=== PATIENT | female | born 1980 | race Two or more races ===

== ENCOUNTER 2019-03-31 19:31 | Emergency (ER) | payer MEDICAID ==
[~2019-03-31] VITALS: Ht 165.1 cm; Wt 59.0 kg
[2019-03-31] MEDS ORDERED: IBUPROFEN 600 MG TAB PO ONE (23:30)
[2019-03-31] MEDS ORDERED: cefTRIAXone SOD 1,000 MG VL IM ONE (23:30)
[2019-03-31 23:48] VITALS: BP 104/57
== END 2019-04-01 00:14 | disposition home or self-care (01) ==
LOC: ER 19:31
DX: J02.9 Acute pharyngitis, unspecified (principal); R51 Headache; H92.01 Otalgia, right ear
CPT/HCPCS: 96372; 99283; J0696

== ENCOUNTER 2019-12-23 09:40 | Inpatient (IN) | payer MEDICAID ==
[~2019-12-23] VITALS: Ht 154.9 cm; Wt 64.9 kg
[2019-12-23] MEDS ORDERED: SODIUM CHLORIDE 0.9% 1,000 ML IV ONE ×6 (10:14→12:30)
[2019-12-23] MEDS ORDERED: ACETAMINOPHEN 325 MG TAB PO ONE (10:15)
[2019-12-23] MEDS ORDERED: cefTRIAXone 1GM/50ML D5W 50 ML IV ONE (10:15)
[2019-12-23 11:24] LABS: Basophils # (auto) 0 10 ^3/uL (0-0.2); Basophils % (auto) 0.2 % (0.0-2.0); Eosinophils # (auto) 0 10 ^3/uL (0-0.8); Eosinophils % (auto) 0.2 % (0.0-7.0); Hematocrit 39.2 % (36.0-46.0); Hemoglobin 12.5 g/dL (12.2-16.2); Lymphocytes # (auto) 0.4 10 ^3/uL (0.4-5.4); Lymphocytes % (auto) 5.4 % (10.0-50.0); Mean Corpuscular Hemoglobin 27.5 pg (28.0-32.0); Mean Corpuscular Hgb Conc. 31.8 g/dL (32.0-36.0); Mean Corpuscular Volume 86.5 fL (80.0-100.0); Monocytes # (auto) 0.1 10 ^3/uL (0-1.3); Monocytes % (auto) 1.6 % (0.0-12.0); Neutrophils # (auto) 7.7 10 ^3/uL (1.6-8.6); Neutrophils % (auto) 92.6 % (37.0-80.0); Platelet Count (auto) 321 10^3/uL (140-450); Red Blood Cells 4.54 10^6/uL (4.0-5.20); Red Cell Distribution Width 13.2 % (11.8-14.3); White Blood Cell 8.3 10^3/uL (4.4-10.8)
[2019-12-23 11:37] LABS: INR 1.06 (0.9-1.15); Partial Thromboplastin Time 24.2 sec (23.0-31.2)
[2019-12-23 11:50] LABS: Albumin 3.2 g/dL (3.4-5.0); Anion Gap 9 (5-15); Blood Urea Nitrogen 12 mg/dL (7-18); Calcium 8.5 mg/dL (8.5-10.1); Carbon Dioxide 19 mmol/L (21-32); Chloride 104 mmol/L (98-107); Glucose 112 mg/dL (74-106); Potassium 3.9 mmol/L (3.5-5.1); Sodium 132 mmol/L (136-145)
[2019-12-23 11:51] LABS: Lactic Acid w/Reflex 2.3 mmol/L (0.4-2.0)
[2019-12-23 12:04] LABS: Alanine Aminotransferase 142 U/L (13-56); Alkaline Phosphatase 110 U/L (45-117); Aspartate Aminotransferase 133 U/L (15-37); BUN/Creatinine Ratio 15.6; Bilirubin, Total 0.4 mg/dL (0.2-1.0); GFR African American 106 mL/min; GFR Non-African American 88 mL/min; Lactate Dehydrogenase 357 U/L (84-246); Total Protein 7.4 g/dL (6.4-8.2)
[2019-12-23 12:15] LABS: Urine Bacteria MANY /hpf (None Seen); Urine Blood 2+ /uL (Negative); Urine Hyaline Cast FEW /lpf (0 - 2); Urine Mucus FEW (None Seen); Urine WBC 133 /hpf (0 - 5)
[2019-12-23] MEDS ORDERED: DexAMETHasone SOD PHOS 10MG/1ML VIAL INJ IV ONE (12:30)
[2019-12-23] MEDS ORDERED: IOHEXOL 350 MG/ML 100ML IJ ONE (12:30)
[2019-12-23] MEDS ORDERED: NOREPINEPHRINE 8 MG/250ML KIT 250 ML IV ONE (12:52)
[2019-12-23] MEDS: NOREPINEPHRINE 8 MG/250ML KIT 250 ML IV SCH (13:00)
[2019-12-23] MEDS ORDERED: PROMETHAZINE HCL 25 MG/ML 1ML IV PRN (14:15)
[2019-12-23] MEDS ORDERED: MORPHINE SULF INJ 2 MG/ML SYRINGE 1ML IV PRN ×2 (14:15)
[2019-12-23] MEDS ORDERED: NITROGLYCERIN 0.4 MG SL TAB SL PRN (14:15)
[2019-12-23] MEDS: SODIUM CHLORIDE 0.9% 1,000 ML IV SCH (14:45)
[2019-12-23 15:33] LABS: CRP High Sensitivity 9.72 mg/dL (< 0.3)
[2019-12-23] MEDS ORDERED: diphenhdrAMINE HCL 50 MG/1 ML VL IV ONE (21:15)
[2019-12-23] MEDS: FAMOTIDINE 20 MG TAB PO SCH (21:20)
[2019-12-24] MEDS: SODIUM CHLORIDE 0.9% 1,000 ML IV SCH ×4 (02:20→18:00)
[2019-12-24 07:32] LABS: Basophils # (auto) 0 10 ^3/uL (0-0.2); Basophils % (auto) 0.3 % (0.0-2.0); Eosinophils # (auto) 0 10 ^3/uL (0-0.8); Eosinophils % (auto) 0.2 % (0.0-7.0); Hematocrit 37.3 % (36.0-46.0); Hemoglobin 11.9 g/dL (12.2-16.2); Lymphocytes # (auto) 1.3 10 ^3/uL (0.4-5.4); Lymphocytes % (auto) 12.2 % (10.0-50.0); Mean Corpuscular Volume 87.3 fL (80.0-100.0); Monocytes # (auto) 0.4 10 ^3/uL (0-1.3); Monocytes % (auto) 3.4 % (0.0-12.0); Neutrophils # (auto) 9.2 10 ^3/uL (1.6-8.6); Neutrophils % (auto) 83.9 % (37.0-80.0); Platelet Count (auto) 346 10^3/uL (140-450); Red Blood Cells 4.27 10^6/uL (4.0-5.20); Red Cell Distribution Width 13.6 % (11.8-14.3)
[2019-12-24 07:34] LABS: Calcium 7.8 mg/dL (8.5-10.1); Potassium 3.2 mmol/L (3.5-5.1)
[2019-12-24 07:37] LABS: BUN/Creatinine Ratio 14.9; Bilirubin, Total 0.2 mg/dL (0.2-1.0); Total Protein 6.9 g/dL (6.4-8.2)
[2019-12-24] MEDS: cefTRIAXone 1GM/50ML D5W 50 ML IV SCH (09:02)
[2019-12-24] MEDS: FAMOTIDINE 20 MG TAB PO SCH ×2 (10:07→22:04)
[2019-12-24] MEDS: NOREPINEPHRINE 8 MG/250ML KIT 250 ML IV SCH (13:00)
[2019-12-24 17:00] VITALS: BP 119/65
[2019-12-24] MEDS ORDERED: IBUP600T27 PO (18:28)
[2019-12-24] MEDS ORDERED: HYDR-4833 PO ×2 (18:29→18:32)
[2019-12-24 20:00] VITALS: BP 105/56
[2019-12-24 22:00] VITALS: BP 105/56
[2019-12-25] MEDS: SODIUM CHLORIDE 0.9% 1,000 ML IV SCH ×4 (00:03→18:29)
[2019-12-25] MEDS: traMADol HCL 50 MG TAB PO PRN ×2 (04:23→11:00)
[2019-12-25 05:00] VITALS: BP 99/51
[2019-12-25 05:53] LABS: BUN/Creatinine Ratio 25.7; Calcium 7.5 mg/dL (8.5-10.1); Potassium 3.4 mmol/L (3.5-5.1)
[2019-12-25 08:18] LABS: Basophils # (auto) 0.1 10 ^3/uL (0-0.2); Basophils % (auto) 0.4 % (0.0-2.0); Eosinophils # (auto) 0.1 10 ^3/uL (0-0.8); Eosinophils % (auto) 0.6 % (0.0-7.0); Hematocrit 33.4 % (36.0-46.0); Hemoglobin 10.9 g/dL (12.2-16.2); Lymphocytes # (auto) 3.2 10 ^3/uL (0.4-5.4); Lymphocytes % (auto) 27.2 % (10.0-50.0); Mean Corpuscular Hemoglobin 27.9 pg (28.0-32.0); Mean Corpuscular Hgb Conc. 32.6 g/dL (32.0-36.0); Mean Corpuscular Volume 85.6 fL (80.0-100.0); Monocytes # (auto) 0.5 10 ^3/uL (0-1.3); Monocytes % (auto) 4.7 % (0.0-12.0); Neutrophils # (auto) 7.9 10 ^3/uL (1.6-8.6); Neutrophils % (auto) 67.1 % (37.0-80.0); Platelet Count (auto) 374 10^3/uL (140-450); Red Cell Distribution Width 13.3 % (11.8-14.3); White Blood Cell 11.7 10^3/uL (4.4-10.8)
[2019-12-25 08:30] VITALS: BP 93/55
[2019-12-25] MEDS: FAMOTIDINE 20 MG TAB PO SCH ×2 (09:21→22:00)
[2019-12-25] MEDS: cefTRIAXone 1GM/50ML D5W 50 ML IV SCH (09:21)
[2019-12-25 12:48] VITALS: BP 100/54
[2019-12-25] MEDS ORDERED: POTASSIUM EFFERVESENT TAB 25 MEQ GT ONE (14:45)
[2019-12-25] MEDS ORDERED: POTASSIUM EFFERVESENT TAB 25 MEQ PO ONE (15:00)
[2019-12-25 16:18] VITALS: BP 95/50
[2019-12-25 22:00] VITALS: BP 92/61
[2019-12-26] MEDS: SODIUM CHLORIDE 0.9% 1,000 ML IV SCH ×2 (02:07→08:47)
[2019-12-26 05:00] VITALS: BP 98/57
[2019-12-26 05:05] LABS: Basophils # (auto) 0.1 10 ^3/uL (0-0.2); Basophils % (auto) 0.8 % (0.0-2.0); Eosinophils # (auto) 0.2 10 ^3/uL (0-0.8); Eosinophils % (auto) 3.4 % (0.0-7.0); Hematocrit 32.7 % (36.0-46.0); Hemoglobin 10.8 g/dL (12.2-16.2); Lymphocytes # (auto) 3.2 10 ^3/uL (0.4-5.4); Lymphocytes % (auto) 45.1 % (10.0-50.0); Mean Corpuscular Hemoglobin 28.6 pg (28.0-32.0); Mean Corpuscular Hgb Conc. 33.2 g/dL (32.0-36.0); Mean Corpuscular Volume 86.2 fL (80.0-100.0); Monocytes # (auto) 0.4 10 ^3/uL (0-1.3); Monocytes % (auto) 5.7 % (0.0-12.0); Neutrophils # (auto) 3.2 10 ^3/uL (1.6-8.6); Platelet Count (auto) 381 10^3/uL (140-450); Red Blood Cells 3.79 10^6/uL (4.0-5.20); Red Cell Distribution Width 13.2 % (11.8-14.3)
[2019-12-26 05:26] LABS: Calcium 8.1 mg/dL (8.5-10.1); Potassium 3.6 mmol/L (3.5-5.1)
[2019-12-26 07:57] VITALS: BP 106/58
[2019-12-26] MEDS ORDERED: CEPH-37 PO (09:56)
[2019-12-26] MEDS: FAMOTIDINE 20 MG TAB PO SCH (10:03)
[2019-12-26] MEDS: cefTRIAXone 1GM/50ML D5W 50 ML IV SCH (10:03)
== END 2019-12-26 12:49 | disposition home or self-care (01) | DRG 720 ==
LOC: ER 09:40 → TELE 09:41 → TELE-WESTW 12-24 16:48
PROVIDERS: ADMIT Internal Medicine; ATTEND Internal Medicine Pulmonary Disease
DX: A41.51 Sepsis due to Escherichia coli [E. coli] (principal); E87.1 Hypo-osmolality and hyponatremia; K72.00 Acute and subacute hepatic failure without coma; E86.0 Dehydration; N39.0 Urinary tract infection, site not specified; I95.9 Hypotension, unspecified; R79.89 Other specified abnormal findings of blood chemistry; Z20.828 Contact with and (suspected) exposure to other viral communicable diseases; M79.602 Pain in left arm
CPT/HCPCS: 36415; 71045; 71275; 76705; 80048; 80053; 80329; 81001; 82150; 82728; 83605; 83615; 83690; 84484; 85025; 85379; 85610; 85652; 85730; 86141; 87040; 87077; 87086; 87088; 87186; 87426; 93971; 99291; G0378; J0696; J1100